=== PATIENT | male | born 2000 | race Caucasian/White ===

== ENCOUNTER 2020-09-05 22:11 | Emergency (ER) | payer OTHER ==
[~2020-09-05] VITALS: Ht 188 cm; Wt 113.4 kg
[2020-09-05 22:14] VITALS: BP 153/99
[2020-09-05] MEDS ORDERED: KETO10TA2 PO (22:26)
--- NOTE | 2020-09-05 22:32 | NUR ---
EMT AT BED SIDE TO APPLY KNEE IMMOBILIZER
== END 2020-09-05 22:42 | disposition home or self-care (01) ==
LOC: ER 22:16
DX: M25.561 Pain in right knee (principal); M25.461 Effusion, right knee

== ENCOUNTER 2023-06-17 05:38 | Emergency (ER) | payer MEDICAID, OTHER ==
[~2023-06-17] VITALS: Ht 190.5 cm; Wt 107.0 kg
[~2023-06-17 05:38] MED LIST: KETO10TA2 PO
[2023-06-17] MEDS ORDERED: ONDANSETRON HCL/PF 4 MG/2 ML VIAL ONE (06:11)
[2023-06-17] MEDS ORDERED: PANTOPRAZOLE 40 MG VIAL ONE (06:11)
[2023-06-17] MEDS: IV NS 0.9% 1,000 ML BAG IV ONE (06:18)
[2023-06-17] MEDS: PANTOPRAZOLE 40 MG VIAL IV ONE (06:19)
[2023-06-17] MEDS: ONDANSETRON HCL/PF 4 MG/2 ML VIAL IVP ONE (06:19)
[2023-06-17 07:33] LABS: INR 1.07 (0.91-1.10); PROTHROMBIN TIME 11.3 SECS (9.2-11.1)
[2023-06-17] MEDS ORDERED: LIDOCAINE 1% INJ 50 ML MDV IJ ONE (07:38)
[2023-06-17] MEDS ORDERED: CEFTRIAXONE 1 G VIAL ONE (07:38)
[2023-06-17 07:39] LABS: CALCIUM, SERUM 9.3 mg/dL (8.5-10.1); CARBON DIOXIDE 31 mmol/L (21-32); CHLORIDE 98 mmol/L (98-107); CREATININE 0.9 mg/dL (0.6-1.3); GLUCOSE 82 mg/dL (74-106); POTASSIUM 3.6 mmol/L (3.5-5.1); SODIUM SERUM 137 mmol/L (136-145); UREA NITROGEN, BLOOD 10 mg/dL (7-18)
[2023-06-17 07:40] LABS: LACTIC ACID 0.7 mmol/L (0.4-2.0)
[2023-06-17] MEDS ORDERED: CEFTRIAXONE 1GM BAG (ER ONLY) 50 ML IV ONE (07:40)
[2023-06-17] MEDS: CEFTRIAXONE 1 G in IV D5W 50 ML IV ONE (07:41)
[2023-06-17 07:45] LABS: AMPHETAMINE, URINE NEGATIVE (NEGATIVE); BARBITURATE, URINE NEGATIVE (NEGATIVE); BENZODIAZEPINE, URINE NEGATIVE (NEGATIVE); CANNABINOID, URINE NEGATIVE (NEGATIVE); COCCAINE, URINE NEGATIVE (NEGATIVE); OPIATE, URINE NEGATIVE (NEGATIVE); PHENCYCLIDINE SCREEN,URINE NEGATIVE (NEGATIVE)
[2023-06-17 07:46] LABS: ALANINE AMINOTRANSFERASE 37 U/L (12-78); ALBUMIN 3.6 g/dL (3.4-5.0); ALKALINE PHOSPHATASE 74 U/L (46-116); ASPARTATE AMINOTRANSFERASE 19 U/L (15-37); BILIRUBIN,DIRECT 0.1 mg/dL (0.0-0.2); BILIRUBIN,TOTAL 0.6 mg/dL (0.2-1.0); LIPASE 18 U/L (16-77); TOTAL PROTEIN, SERUM 8.1 g/dL (6.4-8.2)
[2023-06-17 07:47] LABS: APPEARANCE,URINE CLEAR (CLEAR); BILIRUBIN,URINE NEGATIVE (NEGATIVE); BLOOD, URINE 3+ Ery/uL (NEGATIVE); COLOR,URINE YELLOW (YELLOW); KETONES,URINE NEGATIVE (NEGATIVE); LEUKOCYTE ESTERASE ,URINE NEGATIVE (NEGATIVE); NITRITE, URINE NEGATIVE (NEGATIVE); PROTEIN,URINE NEGATIVE (NEGATIVE); UGLUCOSE NEGATIVE (NEGATIVE); UROBILINOGEN,URINE 0.2 EU/dL (0.2)
[2023-06-17 07:50] LABS: ADD URINE CULTURE NO; BACTERIA,URINE None seen /HPF (None Seen); SQUAMOUS EPITHELIAL CELL,UR Few /HPF (None Seen); WBC,URINE 0-2 /HPF (0-3)
[2023-06-17 08:02] LABS: BASOPHILS % (AUTO) 0.3 % (0.0-2.0); EOSINOPHILS # (AUTO) 0.1 K/uL (0.0-0.7); EOSINOPHILS % (AUTO) 0.9 % (0.0-6.0); HEMATOCRIT 40 % (39-51); HEMOGLOBIN 13.4 g/dL (13.5-17.5); LYMPHOCYTES # (AUTO) 2.9 K/uL (0.8-4.8); LYMPHOCYTES % (AUTO) 21.4 % (20.0-44.0); MEAN CORPUSCULAR HEMOGLOBIN 28 PG (26.0-33.0); MEAN CORPUSCULAR HGB CONC 34 g/dl (31.0-36.0); MEAN CORPUSCULAR VOLUME 83 fL (80-96); MONOCYTES # (AUTO) 1.5 K/uL (0.1-1.30); MONOCYTES % (AUTO) 10.7 % (2.0-12.0); NEUTROPHILS # (AUTO) 9.1 K/uL (1.8-8.9); NEUTROPHILS % (AUTO) 66.7 % (43.0-81.0); PLATELET COUNT (AUTO) 274 K/uL (150-450); RED BLOOD CELL COUNT(AUTO) 4.78 MIL/uL (4.5-6.0); WHITE BLOOD COUNT (AUTO) 13.6 K/uL (4.3-11.0)
[2023-06-17] MEDS ORDERED: IV NS 0.9% 250 ML IV ONE (08:18)
[2023-06-17] MEDS ORDERED: IOHEXOL-350 100 ML VIAL IV ONE (08:18)
[2023-06-17] MEDS ORDERED: CT SWABBABLE VALVE TRANS SET 1 EA INFUS.SET MC ONE (08:18)
[2023-06-17 08:23] LABS: ALCOHOL, BLOOD < 3 mg/dL (0-10); NT-PRO BNP 14 pg/mL (0-125)
[2023-06-17] MEDS ORDERED: FAMO-131 PO (11:03)
[2023-06-17] MEDS ORDERED: CEFD300C3 PO (11:03)
[2023-06-17 11:16] VITALS: BP 144/96; TEMP 98.1; O2SAT 98
== END 2023-06-17 11:17 | disposition home or self-care (01) ==
LOC: ER 05:49
DX: J40 Bronchitis, not specified as acute or chronic (principal); K92.0 Hematemesis; H66.92 Otitis media, unspecified, left ear; Z20.822 Contact with and (suspected) exposure to COVID-19
CPT/HCPCS: 99285; 96365; 96361; 96375; 93005; 87804 ×2; 71045; 71275; 85025; 80048; 83605; 83690; 80076; 85378; 81001; 36415; 84484; 85730; 83880; 87426; 80320; 80307; J0696 ×2; J2405; J7060; J7030; J7050; C9113; Q9967; G0480; J3490

== ENCOUNTER 2023-12-05 13:00 | Emergency (ER) | payer SELFPAY ==
[~2023-12-05] VITALS: Ht 190.5 cm; Wt 106.6 kg
[~2023-12-05 13:00] MED LIST changes: +CEFD300C3 PO; +FAMO-131 PO; -KETO10TA2 PO
[2023-12-05] MEDS ORDERED: KETOROLAC TROMETHAMINE 15 MG/ML VIAL ONE (13:30)
[2023-12-05] MEDS: KETOROLAC TROMETHAMINE 15 MG/ML VIAL IM ONE (13:33)
--- NOTE | 2023-12-05 13:40 | NUR ---
Xray at bedside
[2023-12-05 13:42] VITALS: BP 143/81; TEMP 98.8; O2SAT 100
[2023-12-05] MEDS ORDERED: IBUP-1955 PO (14:26)
== END 2023-12-05 14:31 | disposition home or self-care (01) ==
LOC: ER 13:04
DX: S63.592A Other specified sprain of left wrist, initial encounter (principal); S83.8X2A Sprain of other specified parts of left knee, initial encounter; M54.59 Other low back pain; M25.561 Pain in right knee; R51.9 Headache, unspecified; Z87.39 Personal history of other diseases of the musculoskeletal system and connective tissue; V23.49XA Other motorcycle driver injured in collision with car, pick-up truck or van in traffic accident, initial encounter; Y93.89 Activity, other specified; Y92.488 Other paved roadways as the place of occurrence of the external cause; Y99.8 Other external cause status
CPT/HCPCS: 99284; 96372; 73564; 73110; J1885